=== PATIENT | female | born 2000 | race Asian ===

== ENCOUNTER 2021-12-29 13:15 | Emergency (ER) | payer OTHER, SELFPAY ==
[2021-12-29 14:09] VITALS: BP 110/60; BP 127/76; PULSE 71; PULSE 80; RESP 18; TEMP 36.5; O2SAT 95; BMI 27.5
--- NOTE | 2021-12-29 14:13 | ED_ITS ---
HPI - General Adult General Chief complaint: Psychiatric Symptoms Stated complaint: SECTION 12 FROM [facility] PER EMS Time Seen by Provider: 12/29/21 13:49 Source: patient and EMS Mode of arrival: EMS Limitations: no limitations History of Present Illness HPI narrative: Patient is a 21 year old female presenting to the emergency department today with suicidal ideation. Patient states that she has been making suicidal statements lately and her family's expectations have been causing excess stress. Patient denies any dizziness, lightheadedness, abdominal pain, nausea, vomiting, fever, chills, blurry vision, double vision, loss of vision, chest pain, difficulty breathing, shortness of breath, back pain, night sweats, pain with urination, increased urinary frequency, increased urinary urgency, blood in her urine or stool, syncope or a near syncopal episode, recent trauma or falls, bowel incontinence, bladder incontinence, bowel retention, bladder retention, or any other complaints at this time. Onset (ago): week(s) Treatments prior to arrival: none Related Data Allergies Allergy/AdvReac Type Severity Reaction Status Date / Time No Known Allergies Allergy Verified 12/29/21 14:24 Review of Systems Constitutional: Constitutional: Reports no additional constitutional co mplaints, Denies chills, Denies fever(s) and Denies night sweats Eyes: Eyes: Reports no additional eye complaints, Denies blurry vision, Denies change in vision, Denies diplopia, Denies eye discharge, Denies loss of vision and Denies eye pain ENT: Denies dizziness Cardiovascular: Cardiovascular: Reports no additional cardiovascular complaints, Denies chest pain, Denies lightheadedness, Denies Loss of Consciousness and Denies dyspnea Respiratory: Respiratory: Reports no additional respiratory complaints and Denies dyspnea Gastrointestinal: Gastrointestinal: Reports no additional gastrointestinal complaints, Denies abdominal pain, Denies melena, Denies hematochezia, Denies change in bowel habits and Denies change in stool character Genitourinary: Genitourinary: Denies hematuria, Denies urinary frequency, Denies dysuria, Denies urinary incontinence, Denies urinary hesitancy and Denies urinary urgency Musculoskeletal: Musculoskeletal: Reports no additional musculoskeletal complaints, Denies numbness and Denies tingling Neurologic: Denies dizziness, Denies loss of vision, Denies numbness and Denies tingling Psychiatric: Psychiatric: Reports no additional psychiatric complaints, Reports depression and Reports suicidal ideation Endocrine: Endocrine: Reports no additional endocrine complaints Hematologic/Lymphatic: Hematologic/Lymphatic: Reports no additional hematologic/lymphatic complaints Allergic/Immunologic: Allergic/Immunologic: Reports no additional allergic/immunologic complaints PMFSH Past Medical History Attestation statement: The following information was validated with the patient. Source: old records reviewed Social History Social History Advance Directives: No Advance Directives Information Provided: No Healthcare Proxy: No Guardian: No Patient : No Physical Exam ED Vital Signs: Vital Signs - 24 hr 12/29/21 14:09 Temperature 97.7 F Pulse Rate 71 Respiratory Rate 18 Blood Pressure 127/76 Pulse Oximetry 95 BMI result Body Mass Index 27.5 Const General: cooperative, no acute distress, alert and awake Nutritional Appearance: well nourished Orientation/consciousness: patient oriented x3 Limitations: no limitations HENMT Head: Yes normal to inspection and Yes atraumatic Ears: hearing grossly normal bilaterally and external ears normal General nose exam: Normal external nose present, no nasal discharge noted and no epistaxis Face and sinus: Yes normal facial exam, No abrasion and No laceration Mouth: Normal oral and palatal mucosa present, no drooling and no muffled voice Eyes General: appearance normal, both eyes and all related structures Periorbital: periorbital findings normal Eyelids: Yes eyelids normal Conjunctivae: conjunctivae normal Pupils: Equal, round and reactive pupils present EOM: EOMs intact bilaterally Neck Neck: Yes normal visual inspection, Yes full ROM and Yes no lymphadenopathy Chest Chest palpation & inspection: normal inspection of the chest Resp Effort & Inspection: normal respiratory effort and able to speak in complete sentences Auscultation: clear to auscultation bilaterally Cardio Rate: regular rate Rhythm: regular rhythm GI Inspection: Yes normal to inspection Neuro General: patient oriented x3 and moves all extremities Cranial nerves: Yes Equal, round and reactive pupils present Cognition (Neuro): normal cognition Motor exam (neuro): 5/5 motor strength present throughout Sensory Exam: Normal double simultaneous stimulation for sensation Coordination: [id number] test normal Extrem General: Yes normal to inspection, Yes full ROM and Yes capillary refill normal Psych Appearance: grossly normal Mental Status: mental status grossly normal Affect: Sad affect present Attitude: cooperative Thought process: Normal thought process present Thought content: Suicidality present Insight: Good insight present (Psych) Medical Decision Making MDM Narrative Medical decision making narrative: Patient is a 21 year old female presenting to the emergency department today with suicidal ideation. Patient's physical exam was unremarkable. Patient's blood work is pending. CARE team spoke to me shortly after examining the patient and recommended the patient be an inpatient bed search. States that the patient is already under a section 12. I explained my physical exam findings to the patient. I answered all questions asked by the patient. Patient to be under physician observation until placed at an inpatient psychiatric bed. Differential Diagnosis Differential Diagnosis: suicidal ideation Medical Records Medical records reviewed: Yes I reviewed the patient's medical records. Lab Data Lab results reviewed: Yes I reviewed the patient's lab results. Result diagrams: 12/29/21 14:35 12/29/21 14:35 Labs: Lab Results 12/29/21 12/29/21 Range/Units 14:35 14:35 WBC 6.3 (4.8-10.8) X10*3/uL RBC 4.43 (4.20-5.50) X10*6/uL Hgb 13.7 (12.0-16.0) g/dl Hct 41.3 (37.0-47.0) % MCV 93.2 (80.0-98.0) fL MCH 30.9 (27.0-33.0) pg MCHC 33.2 (31.0-35.0) g/dl RDW 11.9 (11.0-16.0) % Plt Count 376 (160-400) X10*3/uL MPV 10.0 (9.4-12.3) fL Immature Gran % (Auto) 0.3 (0.0-0.4) % Neut % (Auto) 59.3 (45-73) % Lymph % (Auto) 31.8 (20-40) % Stephenson % (Auto) 5.1 (2-11) % Eos % (Auto) 2.4 (0-4) % Baso % (Auto) 1.1 (0-2) % Lymph # (Auto) 2.0 (1.2-4.9) X10*3/uL Stephenson # (Auto) 0.3 (0.1-1.2) X10*3/uL Eos # (Auto) 0.2 (0.0-0.4) X10*3/uL Baso # (Auto) 0.1 (0.0-0.2) X10*3/uL Abs Immat Gran (auto) 0.02 (0.00-0.03) X10*3/uL Absolute Neuts (auto) 3.7 (2.0-8.3) x10*3/uL Absolute Nucleated RBC 0.000 (0.0-0.012) X10*3/uL Nucleated RBC % (auto) 0.0 (0.0-0.2) /100WBC Sodium 138 (135-145) mmol/L Potassium 4.3 (3.3-5.1) mmol/L Chloride 104 (96-108) mmol/L Carbon Dioxide 28 (22-29) mmol/L Anion Gap 10 L (12-20) BUN 7 L (9-16) mg/dL Creatinine 0.67 (0.5-1.4) mg/dL Estim Creat Clear Calc 133.5 Estimated GFR > 60 Random Glucose 128 H (60-115) mg/dL Calcium 9.4 (8.4-10.2) mg/dL Total Bilirubin 0.9 (0.0-1.0) mg/dL AST 24 (5-31) U/L ALT 61 H (0-31) U/L Alkaline Phosphatase 40 (39-117) U/L Total Protein 7.2 (6.5-8.0) g/dL Albumin 4.3 (3.5-5.0) g/dL Discharge Plan Discharge Clinical Impression: Suicidal ideation, Depression Patient Disposition: Still a Patient
[2021-12-29 14:47] LABS: MANUAL DIFF FLAG NO
[2021-12-29 14:48] LABS: Basophils Absolute Auto 0.1 X10*3/uL (0.0-0.2); Basophils Percent Auto 1.1 % (0-2); Eosinophils Absolute Auto 0.2 X10*3/uL (0.0-0.4); Eosinophils Percent Auto 2.4 % (0-4); Hematocrit 41.3 % (37.0-47.0); Hemoglobin 13.7 g/dl (12.0-16.0); Imm Gran Abs Auto 0.02 X10*3/uL (0.00-0.03); Imm Gran Pct Auto 0.3 % (0.0-0.4); Lymphocytes Percent Auto 31.8 % (20-40); Mean Corpuscular HGB Conc 33.2 g/dl (31.0-35.0); Mean Corpuscular Hemoglobin 30.9 pg (27.0-33.0); Mean Corpuscular Volume 93.2 fL (80.0-98.0); Monocytes Absolute Auto 0.3 X10*3/uL (0.1-1.2); Monocytes Percent Auto 5.1 % (2-11); Neutrophils Absolute Auto 3.7 x10*3/uL (2.0-8.3); Neutrophils Percent Auto 59.3 % (45-73); Platelet Count 376 X10*3/uL (160-400); Red Blood Count 4.43 X10*6/uL (4.20-5.50); Red Cell Distribution Width 11.9 % (11.0-16.0); White Blood Count 6.3 X10*3/uL (4.8-10.8)
[2021-12-29 15:04] LABS: Alanine Aminotransferase 61 U/L (0-31); Albumin Level 4.3 g/dL (3.5-5.0); Alkaline Phosphatase 40 U/L (39-117); Anion Gap 10 (12-20); Aspartate Amino Transferase 24 U/L (5-31); Bilirubin Total 0.9 mg/dL (0.0-1.0); Blood Urea Nitrogen 7 mg/dL (9-16); Calcium 9.4 mg/dL (8.4-10.2); Carbon Dioxide 28 mmol/L (22-29); Chloride 104 mmol/L (96-108); Creatinine Clr Calc Pharmacy 133.5; Estimated Glomerular Filt Rate > 60; Glucose Random 128 mg/dL (60-115); Potassium 4.3 mmol/L (3.3-5.1); Sodium 138 mmol/L (135-145); Total Protein 7.2 g/dL (6.5-8.0)
[2021-12-29 18:40] LABS: COVID-19 Test Negative (Negative)
[2021-12-29 19:18] LABS: UPreg QC Valid YES; Urine Pregnancy NEGATIVE (NEGATIVE)
[2021-12-29 19:33] LABS: Amphetamine Screen Urine Not Detected (Not Detect); Barbiturates, Urine Not Detected (Not Detect); Benzodiazepines Screen Urine Not Detected (Not Detect); Cannabinoid Screen Urine Not Detected (Not Detect); Cocaine Screen Urine Not Detected (Not Detect); Fentanyl, urine Not Detected (Not Detect); Opiate Screen Urine Not Detected (Not Detect); Phencyclidine Screen Urine Not Detected (Not Detect)
--- NOTE | 2021-12-29 20:36 | PM.PSYCN ---
History of Present Illness Date of Service: 12/29/21 Chief Complaint: SECTION 12 FROM [facility] PER EMS Reason for Consult: Disposition HPI Narrative: Mary is a 21 y.o. female who carries a dx of MDD recurrent. She presented [place] [facility] [place] via EMS on Section 12 from [place] due to suicidal ideation and depression. Pt endorsed multiple sx of depression when speaking with hotel supplies salesperson, including low energy, avolition, difficulty falling asleep, difficulty getting out of bed, and impaired memory/ concentration. Pt has not been attending class, not attending to her ADLs. Has been engaging in binging/ restricting behaviors. ? Per CARE team randy uriarte?s providers at [facility] report that pt endorsed SI with plan to cut herself and bleed out. Futhermore, she said that this ?will have to happen either before or aft the 16 because that is the date of my professors wedding & it would be bad luck.? I evaluated the pt this evening and upon interview she reports her counselors at [facility] ?might have emphasized the intent? of her suicide plan. Says at the time she was ?feeling pretty down? but that ?I dont know if U necessarily felt like I was going to see it through.? She currently denies intent for suicide. Pt identifies precipitating factors as it being her final semester, feels ?more stressed? about what she will do when she graduates. She also reports that she preferred virtual learning and the transition back to in-person was ?a big stressor? for her. She has had difficult getting to class. Says she is now thinking about ?the consequences if I did , what would happen to family/ friends?? Says that she would not want to do that to her family, ?I would feel guilty about leaving them behind.? She reports that because ?a lot of stress is school based? she is interested in taking another medical leave. She does not want [employer] because ?its so boring,? does not like that she cant use the internet or phone, ?I feel like my brain would rot more.? ?Pt says she has been off Lexapro meds for about 2.5 months due to not scheduling a follow up appointment with the provider on campus. Says it was initially helpful, but she is unsure if she noticed a difference once the semester started. Says she sleeps a ?regular amount? but does not feel rested. Denies anger or agitation. Denies psychotic sx. No hx of manic or hypomanic episodes endorsed. Pt is currently denying active SI and says she feels safe. Past Psychiatric History: -Hx of taking a medical leave from school for depression in 2019. -Remote hx of SIB, says she tried cutting herself in h.s. but ?it wasn?t for me.? -Denies hx of OP therapy -Past meds: Zoloft (initially helpful but wore off over time, was on it for about a year). Medical Evaluation Reviewed: Yes PMFSH Family History: -Her mother and one of her brothers struggle with their mental health. Brother posted something on his facebook about suicide. Social History: -Pt is single. No children. Family is supportive, reside in [place], [place]. -She graduated h.s., senior at [employer], studying psychology. She lives on campus and has supportive friends. Diagnostics Vital Signs (24Hr): Vital Signs - 24 hr 12/29/21 14:09 Temperature 97.7 F Pulse Rate 71 Respiratory Rate 18 Blood Pressure 127/76 Pulse Oximetry 95 BMI result Body Mass Index 27.5 Labs Results: 12/29/21 14:35 12/29/21 14:35 Labs: Laboratory Results - last 48 hr 12/29/21 12/29/21 12/29/21 14:35 14:35 17:58 WBC 6.3 RBC 4.43 Hgb 13.7 Hct 41.3 MCV 93.2 MCH 30.9 MCHC 33.2 RDW 11.9 Plt Count 376 MPV 10.0 Immature Gran % (Auto) 0.3 Neut % (Auto) 59.3 Lymph % (Auto) 31.8 Hudspeth % (Auto) 5.1 Eos % (Auto) 2.4 Baso % (Auto) 1.1 Lymph # (Auto) 2.0 Hudspeth # (Auto) 0.3 Eos # (Auto) 0.2 Baso # (Auto) 0.1 Abs Immat Gran (auto) 0.02 Absolute Neuts (auto) 3.7 Absolute Nucleated RBC 0.000 Nucleated RBC % (auto) 0.0 Sodium 138 Potassium 4.3 Chloride 104 Carbon Dioxide 28 Anion Gap 10 L BUN 7 L Creatinine 0.67 Estim Creat Clear Calc 133.5 Estimated GFR > 60 Random Glucose 128 H Calcium 9.4 Total Bilirubin 0.9 AST 24 ALT 61 H Alkaline Phosphatase 40 Total Protein 7.2 Albumin 4.3 Urine Test Urine Opiates Screen Urine Fentanyl Screen Ur Barbiturates Screen Ur Phencyclidine Scrn Ur Amphetamines Screen U Benzodiazepines Scrn Urine Cocaine Screen U Marijuana (THC) Screen COVID-19 (SHANDA) Negative COVID-19 Clin Com See Note 12/29/21 12/29/21 19:07 19:07 WBC RBC Hgb Hct MCV MCH MCHC RDW Plt Count MPV Immature Gran % (Auto) Neut % (Auto) Lymph % (Auto) Hudspeth % (Auto) Eos % (Auto) Baso % (Auto) Lymph # (Auto) Hudspeth # (Auto) Eos # (Auto) Baso # (Auto) Abs Immat Gran (auto) Absolute Neuts (auto) Absolute Nucleated RBC Nucleated RBC % (auto) Sodium Potassium Chloride Carbon Dioxide Anion Gap BUN Creatinine Estim Creat Clear Calc Estimated GFR Random Glucose Calcium Total Bilirubin AST ALT Alkaline Phosphatase Total Protein Albumin Urine Test NEGATIVE Urine Opiates Screen Not Detected Urine Fentanyl Screen Not Detected Ur Barbiturates Screen Not Detected Ur Phencyclidine Scrn Not Detected Ur Amphetamines Screen Not Detected U Benzodiazepines Scrn Not Detected Urine Cocaine Screen Not Detected U Marijuana (THC) Screen Not Detected COVID-19 (SHANDA) COVID-19 Clin Com Mental Status Exam Mental Status Exam Narrative: A&O. In hospital attire, overweight, good hygiene. Good eye contact, attentive. No Tics or Tremors. No abnormal involuntary movements. Calm, cooperative, engaged. Non-pressured speech, spontaneous with regular rate and rhythm, normal volume and prosody. No prolonged speech latency or dysarthria. Mood is ?better,? affect is dysphoric. Currently denies active SI/SIB/HI upon inquiry. Denies A/VH or delusional thought content. Thoughts are coherent, organized. No known cognitive or memory impairment. Insight/ Judgment fair and adequate. Medications Allergies Allergies Allergy/AdvReac Type Severity Reaction Status Date / Time No Known Allergies Allergy Verified 12/29/21 14:24 Assessment & Plan Assessment & Plan (1) MDD (major depressive disorder), recurrent episode, moderate: Status: Acute Code(s): F33.1 - Major depressive disorder, recurrent, moderate Plan Mary is a 21 y.o. female who carries a dx of MDD recurrent. She presented [place] [facility] [place] via EMS on Section 12 from [place] due to suicidal ideation and depression. Pt endorsed multiple sx of depression and has hx of taking medical leave from school for mental health issues and found that helpful. No hx of IPLOC. Pt is currently denying SI/ SIB and says she feels safe. Plan: Pt is advocating to take a medical leave from college to focus on her mental health. She is interested in OP therapy referrals and to get back on Lexapro for sx of depression and anxiety. Pt is currently not presenting as a threat to herself, denies SI plan or intent. Says she feels safe. CARE team clinician will follow up with [facility] to work on a safety plan. ? I spent minutes with the patient and/or on the patient floor today, greater than?50% of which was spent counseling/coordinating care.
[2021-12-29] MEDS: Melatonin 3 MG TABLET 6 MG PO (22:38)
[2021-12-30 03:32] VITALS: BP 125/72; PULSE 80; RESP 18; TEMP 36.6; O2SAT 98
--- NOTE | 2021-12-30 06:17 | PC.NURSE ---
Patient slept through the night, no distress observed/reported, behavior pleasant and non concerning at this time, patient was assessed by care team, disposition discharge home with parents, VSS, will continue to monitor.
--- NOTE | 2021-12-30 07:18 | PC.NURSE ---
patient appears to remain asleep at present respirations are even and unlabored patient appears in no distress
[2021-12-30 08:16] VITALS: BP 102/67; PULSE 59; RESP 16; O2SAT 99
--- NOTE | 2021-12-30 10:13 | MHC.CARE ---
Safety Plan? Carin will utilize the following crisis hotlines for crisis support:? [facility] Crisis Services: [phone], this crisis team serves all of [facility]. You can call or? you can go to their office, [address], [place].?? You are on alert with the [facility] crisis.They are aware of what is happening, and they are willing to help.You can also call them for support.?? [facility] : 16/04 Care and Support Line at [phone]? The National Suicide Prevention Lifeline at ? Recommendations:? -Carin will continue to utilize campus supports for her mental health.? -If Carin feels that she is not improving l or if symptoms worsen, she will return to [facility], or go to [facility].? -Carin will use her coping skills (drawing, playing games, and staying active) as helpful distractions when she is feeling overwhelmed. Off campus counseling information:? https://[email or web address].psychologytoday.com/us
--- NOTE | 2021-12-30 11:20 | MHC.CARE ---
CARE Team coordinated with Lexii Moya from [facility] who is anticipating Pts return today.
== END 2021-12-30 11:38 | disposition home or self-care (01) ==
PROVIDERS: Physician Assistant Medical; Emergency Provider Emergency Medicine
DX: R45.851 Suicidal ideations (principal); F32.A Depression, unspecified
CPT/HCPCS: 36415; 80053; 80307; 81025; 85025; 87635; 99284